=== PATIENT | female | born 1955 | race Two or more races ===

== ENCOUNTER 2025-04-29 20:47 | Emergency (ER) | payer BC ==
[~2025-04-29] VITALS: Ht 167.6 cm; Wt 77.1 kg
[2025-04-29] MEDS ORDERED: ATORVASTATIN CA10 MG PO (21:10)
[2025-04-29] MEDS ORDERED: METOCLOPRAMIDE HCL 5 MG/ML VIAL IV ONE (21:30)
[2025-04-29] MEDS ORDERED: MECLIZINE HCL 25 MG TABLET PO ONE (21:30)
[2025-04-29] MEDS ORDERED: FAMOtidine 10 MG/ML (4ML VIAL) IV ONE (21:30)
[2025-04-29] MEDS ORDERED: 0.9 % SODIUM CHLORIDE 1,000 ML IV ONE (21:30)
[2025-04-29 22:06] LABS: BASO % 0.5 % (0.1-1.2); EOS # 0.14 (0.04-0.54); EOS % 1.1 % (0.7-7.0); LYMPH # 1.69 (1.18-3.74); LYMPH % 12.9 % (19.3-53.1); MEAN PLATELET VOLUME 10.50 fl (9.4-12.4); MONO # 0.66 (0.24-0.82); MONO % 5.0 % (4.7-12.5); NEUT # 10.47 (1.56-6.13); NEUT % 79.8 % (34.0-71.1); RED CELL DISTRIBUTION WIDTH 13.2 % (11.6-14.4)
[2025-04-29 22:27] LABS: INR 1.0
[2025-04-29 22:29] LABS: COVID-19 AG NEGATIVE (NEGATIVE)
[2025-04-29 22:32] LABS: ALT/SGPT 32.0 U/L (12-78); AST/SGOT 13.0 U/L (15-37); BILIRUBIN TOTAL 0.41 mg/dL (0.3-1.2); BUN CREA RATIO 23.0 (7.0-25.0); CREATININE SERUM 0.92 mg/dL (0.55-1.02); GFR 60.18; GLOBULINA 4.1 G/DL (2.4-3.5); GLUCOSE FASTING 160.0 mg/dL (65-100); OSMOLALITY SERUM 286.0 MOSM/KG (275-295)
[2025-04-30 01:40] LABS: URINE APPEARANCE Clear; URINE BILIRRUBIN Negative (NEGATIVE); URINE BLOOD Negative; URINE COLOR Yellow; URINE GLUCOSE Negative (NEGATIVE); URINE KETONE Negative (NEGATIVE); URINE LEUKOCYTE Negative; URINE NITRATE Negative; URINE PROTEIN Negative (NEGATIVE); URINE UROBILINOGEN 0.2 E.U./dl
[2025-04-30 01:41] LABS: URINE BACTERIA 1100.1 uL (0.0-1933); URINE EPITHELIAL CELLS 15.6 uL (0.0-38.8); URINE RBC 2.0 uL (0.0-20.8); URINE WBC 27.5 uL (0.0-23.2)
[2025-04-30 01:43] LABS: URINE CAST 0.29 uL (0.0-1.40)
[2025-04-30] MEDS ORDERED: MECLIZINE HCL25 MG PO (05:35)
== END 2025-04-30 05:50 ==
LOC: EDBD 20:47 → ER 20:47
PROVIDERS: General Practice
DX: R42 Dizziness and giddiness (principal); R11.2 Nausea with vomiting, unspecified; Z20.822 Contact with and (suspected) exposure to COVID-19